=== PATIENT | female | born 1980 | race Caucasian/White ===

== ENCOUNTER 2017-01-16 15:36 | Emergency (ER) | payer OTHER ==
[2017-01-16] MEDS ORDERED: ZOFRAN IM ONE (15:59)
[2017-01-16] MEDS ORDERED: MORPHINE IM ONE (15:59)
--- NOTE | 2017-01-16 17:19 | Diag Imaging Result Document ---
PROCEDURE NAME: HEAD/C-SPINE W/O CONTRAST - 01/16/2017 CT BRAIN AND CERVICAL SPINE WITHOUT CONTRAST. DOSE REDUCTION PROTOCOL: BRAIN: FINDINGS: No parenchymal hemorrhage. No epidural or subdural hematoma. No subarachnoid hemorrhage. No mass identified on this noncontrasted exam. No hydrocephalus. No skull fracture. No sinus opacification. No air fluid levels. IMPRESSION: No hemorrhage. No injury. CT CERVICAL SPINE WITHOUT CONTRAST: FINDINGS: There is slight reversal of the normal curvature. Mild to moderate degenerative changes are found in the lower cervical spine. No subluxation. No precervical soft tissue swelling. No fracture. IMPRESSION: No acute bony injury. A preliminary report was given at 5:02 p.m.
[2017-01-16] MEDS ORDERED: PHENERGAN PO ONE (17:25)
[2017-01-16] MEDS ORDERED: ULTRAM PO ONE (17:25)
--- NOTE | 2017-01-16 17:30 | PROVIDER DOCUMENTATION ---
HPI-Head Injury <Bon Penn Kannan - Last Filed: 01/16/17 17:30> - General Source: patient - History of Present Illness-Head Injury Head Injury Location: reports: global Other injuries associated with incident:: reports: none Quality of Pain: reports: aching Severity: reports: mild Onset/Duration: reports: this morning Timing: reports: still present, intermittent Method of Injury: reports: fell Any recent trauma/injury?: reports: minor Loss of Consciousness: unsure Modifying Factors: improves with: nothing Injury Associated Symptoms: reports: denies symptoms Locality of Occurance: Home Similar Symptoms Previously?: No Recently seen or treated by another doctor?: No <PhillipAnneliese - Last Filed: 01/16/17 17:40> - General Chief Complaint: Head Injury Stated Complaint: HEAD INJURY Time Seen by Provider: 01/16/17 15:47 Allergies/Adverse Reactions: Patient Allergies Allergy/AdvReac Type Severity Reaction Status Date / Time Sulfa (Sulfonamide Allergy Mild RASH Verified 09/04/16 18:20 Antibiotics) doxycycline Allergy SWELLING Verified 09/04/16 18:20 Home Medications: Home Medication List Medication Instructions Recorded Confirmed Last Taken Type Gabapentin [Neurontin] 900 mg PO TID 02/07/15 08/28/16 09/04/16 History Alprazolam [Xanax] 1 mg PO QAM 02/19/16 08/28/16 09/04/16 History Furosemide [Lasix] 20 mg PO BID 02/19/16 08/28/16 09/04/16 History Lamotrigine [Lamictal] 200 mg PO QAM 02/19/16 08/28/16 09/04/16 History Levetiracetam [Keppra] 500 mg PO BID 02/19/16 08/28/16 09/04/16 History Omeprazole 40 mg PO DAILY 02/19/16 08/28/16 09/04/16 History Estradiol 2 mg PO DAILY 05/26/16 08/28/16 09/04/16 History Valacyclovir HCl [Valtrex] 500 mg PO DAILY 05/26/16 08/28/16 08/23/16 07:30 History Sumatriptan Succinate [Imitrex] 100 mg PO DIRECTED 06/20/16 08/28/16 History Hydrocodone/APAP 7.5 mg/325 mg 1 each PO Q6H PRN PRN #14 tablet 09/04/16 Unknown Rx [Kodak-7.5] Duloxetine HCl [Cymbalta] 90 mg PO 01/16/17 Unknown History Ondansetron [Zofran] 4 mg pe PO PRN PRN 01/16/17 01/16/17 Unknown History Prochlorperazine Maleate 5 mg PO Q4H PRN PRN #10 tablet 01/16/17 Unknown Rx [Compazine] Promethazine [Phenergan] 25 mg PO Q6H PRN PRN 01/16/17 01/16/17 Unknown History - History of Present Illness-Head Injury Nature of Presenting Problem: Pt is 36 y/o F presents to the ED with head injury. Pt states had a seizure in the shower this am. Pt states hx of seizures. Pt states unsure of LOC. Pt states laceration to top of head. (Anneliese Fisher) Review of Systems - Adult - REVIEW OF SYSTEMS - ADULT Constitutional: denies: chills, fever Eyes: denies: blurred vision, double vision Ears, Nose, Mouth & Throat: denies: ear pain, nose pain, throat pain Cardiovascular: reports: irregular heart rate (tachy). denies: chest pain, heart murmur Respiratory: denies: cough, shortness of breath, wheezing Gastrointestinal: denies: abdominal pain, diarrhea, nausea, vomiting Genitourinary: denies: dysuria, hematuria Musculoskeletal: denies: bone pain, joint pain, neck pain Integumentary: denies: hives, itching Neurological: reports: seizure. denies: dizziness/vertigo, headache/migraines Psychiatric: reports: no symptoms reported Endocrine: reports: no symptoms reported Hematologic/Lymphatic: reports: no symptoms reported Allergic/Immunologic: reports: no symptoms reported All Other Systems: Reviewed and Negative <Anneliese Fisher - Last Filed: 01/16/17 17:40> Past History - Adult - PAST MEDICAL HISTORY-ADULT Review of Records: reports: Nursing Assessment Review, Medications Reviewed, Social history reviewed & non-contributory. Major Childhood Illnesses: reports: denies history Cardiovascular: reports: CHF, HTN Respiratory: reports: denies history Gastrointestinal: reports: GERD Obstetrical/Gynecological: reports: denies history Genitourinary: reports: denies history Musculoskeletal: reports: arthritis, chronic pain, fibromyalgia, orthopedic injury Neurological: reports: Seizures/Epilepsy Psychiatric: reports: anxiety, depression, ptsd Endocrine/Immune: reports: lupus, other Other Conditions: reports: denies history - PRIOR SURGERIES/PROCEDURES Surgical/Procedure History: reports: hysterectomy, , tonsillectomy, orthopedic (extremity), other, appendectomy - IMMUNIZATION STATUS Childhood Immunizations: See Nurse Assessment Flu Vaccine: See Nurse Assessment - FAMILY HISTORY Family History: reviewed, not pertinent - SOCIAL HISTORY Smoking: denies Substance Use: denies Living Situation: family <Anneliese Fisher - Last Filed: 01/16/17 17:40> Physical Exam- Neurological - Physical Exam-Neuro Initial Vital Signs Reviewed: Yes General Appearance: appears well, alert, no apparent distress Eye Exam: bilateral eye: normal inspection, PERRL, EOMI HENMT: normocephalic/atraumatic, moist mucous membranes, normal ENT inspection, TMs normal, pharynx normal Head Injury: lacerations (2 cm) Neck: non-tender, full range of motion, supple, normal inspection Respiratory: chest non-tender, lungs clear, normal breath sounds, no pleuratic chest pain, no respiratory distress, no accessory muscle use Cardiovascular: normal peripheral pulses, no edema, no gallop, no JVD, no murmur , tachycardia Abdominal Exam: normal bowel sounds, non tender, soft, no organomegaly, no pulsatile mass Lymphatic: no adenopathy Extremity: normal range of motion, non-tender, normal gait, normal inspection, no pedal edema, no calf tenderness manager strategic Exam: normal hearing, normal speech, PERRL Coordination/Gait: normal finger to nose, normal gait Motor/Sensory: no motor deficit, no sensory deficit, no pronator drift Neurologic: manager strategic II-XII nml as tested, grossly normal, no motor/sensory deficits Integumentary: normal color, normal turgor, warm/dry Psych/Mental Status: normal mood/affect, oriented x 3 <Anneliese Fisher - Last Filed: 01/16/17 17:40> Progress <Bon Penn - Last Filed: 01/16/17 17:30> - CT/MRI 1 CT Study: Cervical Spine (no acute bony injury), Head (no hemorrhage. no injury) Impression: Normal <PhillipDorotaAnneliese - Last Filed: 01/16/17 17:40> - PLAN OF CARE/RESULTS Progress/Plan/Lab Results: Orders Category Date Time Status ED: Urine Bedside ORDERED Care 01/16/17 15:59 Active HEAD/C-SPINE W/O CONTRAST [CT] Stat Exams 01/16/17 15:59 Draft Morphine Med 01/16/17 15:59 Discontinued 4 mg IM NOW ONE Ondansetron [Zofran] Med 01/16/17 15:59 Discontinued 4 mg IM NOW ONE Promethazine [Phenergan] Med 01/16/17 17:25 Discontinued 25 mg PO NOW ONE Tramadol [Ultram] Med 01/16/17 17:25 Discontinued 50 mg PO NOW ONE Vital Signs - 24 hr 01/16/17 15:39 Temperature 98.8 F Pulse Rate 110 H Respiratory 20 Rate Blood Pressure 138/91 (Anneliese Fisher) Procedures - LACERATION/WOUND REPAIR/FB Head Wound Length: 2 cm Wound's Depth, Shape: superficial, linear Wound Explored/Foreign Body: clean Irrigated with Saline?: No Wound Repaired with: [place]-Large Number of Sutures: 2 (naomi ) Sterile Dressing Applied?: No Splint Applied?: No Sling Applied?: No Post Procedure Neurovascular Exam: N/A <PhillipAnneliese - Last Filed: 01/16/17 17:40> Departure - Departure Time of Disposition Order: 17:30 Certified Medical Emergency: Emergent <Bon Penn - Last Filed: 01/16/17 17:30> - Departure Time of Disposition Order: 17:40 Certified Medical Emergency: Emergent <Anneliese Fisher - Last Filed: 01/16/17 17:40> - Departure DIAGNOSIS: Seizure Scalp laceration Qualifiers: Encounter type: initial encounter Qualified Code(s): S01.01XA - Laceration without foreign body of scalp, initial encounter Fall Qualifiers: Encounter type: initial encounter Qualified Code(s): W19.XXXA - Unspecified fall, initial encounter Disposition: HOME 01 Condition: Stable Additional Instructions: Take medication as prescribed. Keep area clean and dry. Follow up in 1 week for staple removal. ED Follow Up Instructions: You have been treated by a care provider in the Emergency Department. These instructions are being provided to you so you can have an understanding of how to care for yourself upon discharge. Upon discharge from the Emergency Department, you are responsible for making arrangements for follow-up care by a physician of your choice. Take all prescribed medications as directed. Return to the Emergency Department immediately for any new or worsening symptoms. You may call the Physician Referral phone number at [phone] to obtain a list of Physicians who are taking new patients. Prescriptions: Prochlorperazine Maleate [Compazine] 5 mg PO Q4H PRN PRN #10 tablet PRN Reason: Headaches Referrals: None,PCP [Primary Care Provider] - Attestation - Physician/ BRIAN Attestation Patient care was provided by Advanced Practice Provider:: Yes Advanced Practice Provider:: Bon Penn Advanced Practice Provider documentation review:: The Mid-level provider documentation, treatment plan and medical decision making was reviewed by the physician who agrees with all treatment and medical decision making by the MLP. <Bon Penn - Last Filed: 01/16/17 17:30> - Scribe Verification/Attestation Scribe:: Anneliese Fisher Acting as Scribe for:: Bon Penn Scribe documention review:: This chart was documented by a scribe and accurately reflects the service the provider performed and the decisions made by the provider. <Anneliese Fisher - Last Filed: 01/16/17 17:40> Physician Attestation
[2017-01-16 17:47] VITALS: BP 113/71
== END 2017-01-16 17:51 | disposition home or self-care (01) ==
LOC: P.ED 15:36
DX: S01.01XA Laceration without foreign body of scalp, initial encounter (principal); R56.9 Unspecified convulsions; R00.0 Tachycardia, unspecified; I50.9 Heart failure, unspecified; I10 Essential (primary) hypertension; K21.9 Gastro-esophageal reflux disease without esophagitis; M19.90 Unspecified osteoarthritis, unspecified site; M79.7 Fibromyalgia; Z79.899 Other long term (current) drug therapy; G89.29 Other chronic pain; M32.9 Systemic lupus erythematosus, unspecified; F41.9 Anxiety disorder, unspecified; F32.9 Major depressive disorder, single episode, unspecified; F43.10 Post-traumatic stress disorder, unspecified; W19.XXXA Unspecified fall, initial encounter
CPT/HCPCS: 70450; 72125; 81025; 96372; J2270; J2405

== ENCOUNTER 2017-01-30 16:53 | Observation (INO) | payer OTHER ==
[2017-01-30] MEDS ORDERED: AMMONIA AROMATIC ONE (16:59)
[2017-01-30 18:46] LABS: MANUAL DIFF NEEDED? NO
[2017-01-30 18:53] LABS: BASO% 1.1 % (0.0-0.8); EOS# 0.23 X1000 (0.0-0.7); EOS% 2.3 % (0.0-10.0); HEMATOCRIT 39.5 % (37.0-47.0); HEMOGLOBIN 13.8 g/dL (12.0-16.0); LYMPH# 3.64 X1000 (1.2-3.4); LYMPH% 36.8 % (20.5-51.1); MCH 30.2 PG (27-31); MCHC 34.9 g/dL (33-37); MCV 86.4 FL (81-99); MONO% 9.1 % (1.7-9.3); MPV 11.3 FL (7.4-10.4); NEUT% 50.7 % (42.2-75.2); PLT 290 X1000 (130-400); RBC 4.57 XMIL (4.2-5.4)
[2017-01-30 19:06] LABS: INR 0.92; PROTIME 9.4 Seconds (9.2-11.7); PTT 22.2 Seconds (22.0-36.0)
[2017-01-30 19:10] LABS: AGAP 14; ALKALINE PHOSPHATASE 76 U/L (32-104); BUN 10 mg/dL (8-22); CHLORIDE 102 mmol/L (98-107); CK PROFILE 59 U/L (24-173); COSMO 278; GOT 26 U/L (10-30); GPT 43 U/L (10-36); MAGNESIUM 2.2 mg/dL (1.5-2.7); POTASSIUM 3.8 mmol/L (3.5-5.1); SODIUM 140 mmol/L (136-145); TCO2 24 mmol/L (25-35); TOTAL BILIRUBIN 0.21 mg/dL (0.20-1.00); TOTAL PROTEIN 7.1 g/dL (6.3-8.3)
[2017-01-30] MEDS ORDERED: SODIUM CHLORIDE 0.9% INJ ONE (19:25)
[2017-01-30] MEDS ORDERED: PHENERGAN IV ONE (19:25)
[2017-01-30] MEDS ORDERED: DILAUDID IV ONE ×2 (19:25→21:37)
[2017-01-30 19:26] LABS: ACETAMINOPHEN < 1.2 ug/mL (10-30)
--- NOTE | 2017-01-30 19:29 | PROVIDER DOCUMENTATION ---
HPI-Neurological Disorder - General Chief Complaint: Seizure Stated Complaint: SEIZURE Time Seen by Provider: 01/30/17 18:29 Source: patient Allergies/Adverse Reactions: Patient Allergies Allergy/AdvReac Type Severity Reaction Status Date / Time Sulfa (Sulfonamide Allergy Mild RASH Verified 01/30/17 18:10 Antibiotics) doxycycline Allergy SWELLING Verified 01/30/17 18:10 Home Medications: Home Medication List Medication Instructions Recorded Confirmed Last Taken Type Gabapentin [Neurontin] 1,200 mg PO TID 02/07/15 01/30/17 01/30/17 08:00 History Furosemide [Lasix] 40 mg PO DAILY 02/19/16 01/30/17 01/30/17 08:00 History Lamotrigine [Lamictal] 200 mg PO BID 02/19/16 01/30/17 01/30/17 08:00 History Levetiracetam [Keppra] 1,000 mg PO BID 02/19/16 01/30/17 01/30/17 08:00 History Omeprazole 40 mg PO DAILY 02/19/16 01/30/17 01/30/17 08:00 History Estradiol 2 mg PO DAILY 05/26/16 01/30/17 01/30/17 08:00 History Valacyclovir HCl [Valtrex] 500 mg PO DAILY 05/26/16 01/30/17 01/30/17 08:00 History Sumatriptan Succinate [Imitrex] 100 mg PO DIRECTED 06/20/16 01/30/17 1 Week Ago History Duloxetine HCl [Cymbalta] 90 mg PO DAILY 01/16/17 01/30/17 01/30/17 08:00 History Ondansetron [Zofran] 4 mg pe PO PRN PRN 01/16/17 01/30/17 2 Months Ago History Promethazine [Phenergan] 25 mg PO Q6H PRN PRN 01/16/17 01/30/17 1 Week Ago History Prazosin [Minipress] 2 mg PO QHS 01/30/17 01/30/17 01/29/17 23:00 History - History of Present Illness-Neuro Nature of Presenting Problem: Pt is a 37 yof who presents to ER with CC of 4 seizures today that occured within 10 minutes. Pt reports that she was in a car, passenger, when she started to have a seizure. Family at bedside, who was the driver sales, reports that pt was having muscle spasms and hitting her head on the passenger side window. Pt now complains of a headache, nausea, blurry vision, dizziness, R sided facial pain, R lateral neck pain, and R shoulder pain. Pt has hx of seizures and takes kepra and lamictal. Pt also reports that she has been under increased stress this week because of her great aunt being admitted to the hospital. Headache Location: reports: frontal (R), temporal (R), parietal (RR) Severity: reports: moderate Onset/Duration: reports: just prior to arrival Timing: reports: improving Context: reports: seizure activity Character of Altered Mental Status: reports: confused, seizure activity. denies : unresponsive Any recent trauma/injury?: reports: other (recent emotional stress) Cognitive Baseline: alert, oriented x3 Gait Baseline: walks without assistance Associated Symptoms: reports: headache, dizziness, neck/back pain (R neck/ cervical), loss of consciousness, muscle spasms, nausea, seizures, vision changes (blurry vision). denies: short of breath, decreased ability to walk or stand, fainting, confusion, chest pain, fatigue, fever/chills, insomnia, numbness in legs/feet, paresthesia, diaphoretic, ringing in ears, sleepy, slurred speech, tingling in legs/feet, trouble walking, vomiting, weakness Similar Symptoms Previously?: Yes Recently seen or treated by another doctor?: Yes - Seizure First time to have a seizure?: No Witnessed seizure?: Yes How many seizure episodes?: 4 Duration of episode? (mins): 10 Episode Frequency: occasional episodes Status Epilepticus: Yes Character of Seizure: reports: lost consciousness, generalized shaking all over Post-ictal Symptoms: reports: headache Review of Systems - Adult - REVIEW OF SYSTEMS - ADULT Constitutional: denies: chills, fever, fatique, night sweats, weight gain, weight loss Eyes: reports: blurred vision. denies: discharge, dry eyes, decreased vision, double vision, eye pain, redness Ears, Nose, Mouth & Throat: reports: no symptoms reported Cardiovascular: reports: no symptoms reported Respiratory: denies: chronic cough, cough, dyspnea on exertion, excessive sputum production, hemoptysis, pleurisy, shortness of breath, wheezing Gastrointestinal: reports: no symptoms reported Genitourinary: reports: no symptoms reported Musculoskeletal: reports: back pain, joint swelling, muscle aches, muscle weakness, neck pain. denies: bone pain, frequent leg cramps, joint pain Integumentary: reports: no symptoms reported Neurological: reports: dizziness/vertigo, headache/migraines, seizure. denies: ataxia, loss of balance, numbness, paresthesia, slurred speech, syncope, tremors Psychiatric: reports: no symptoms reported Endocrine: reports: no symptoms reported Hematologic/Lymphatic: reports: no symptoms reported Allergic/Immunologic: reports: no symptoms reported All Other Systems: Reviewed and Negative Past History - Adult - PAST MEDICAL HISTORY-ADULT Review of Records: reports: Nursing Assessment Review, Medications Reviewed Cardiovascular: reports: CHF, HTN Gastrointestinal: reports: GERD Musculoskeletal: reports: arthritis, chronic pain, fibromyalgia, orthopedic injury Neurological: reports: Seizures/Epilepsy Psychiatric: reports: anxiety, depression, ptsd Endocrine/Immune: reports: lupus, other - PRIOR SURGERIES/PROCEDURES Surgical/Procedure History: reports: hysterectomy, , tonsillectomy, orthopedic (extremity), other, appendectomy - IMMUNIZATION STATUS Childhood Immunizations: See Nurse Assessment Flu Vaccine: See Nurse Assessment Physical Exam- Neurological - Physical Exam-Neuro Initial Vital Signs Reviewed: Yes General Appearance: appears well, alert, mild distress, lethargic. negative: no apparent distress, moderate distress, severe distress, cachetic, obese, thin , anxious, slow to respond, obtunded, combative Eye Exam: bilateral eye: normal inspection, PERRL, EOMI HENMT: normocephalic/atraumatic, moist mucous membranes, normal ENT inspection, TMs normal, pharynx normal Head Injury: no evidence of injury, tenderness (R frontal; R parietal; R temporal) Neck: full range of motion, supple, C-spine tenderness. negative: non-tender, limited range of motion, lymphadenopathy Respiratory: chest non-tender, lungs clear, normal breath sounds, no pleuratic chest pain, no respiratory distress, no accessory muscle use. negative: wheezing Cardiovascular: normal peripheral pulses, regular rate, rhythm. negative: bradycardia, tachycardia, irregularly irregular program evaluation consultant Exam: normal hearing, normal speech, PERRL. negative: hearing deficit (R), hearing deficit (L), tongue deviation to R, tongue deviation to L Coordination/Gait: normal finger to nose, normal gait, negative Romberg's sign Motor/Sensory: no motor deficit, no sensory deficit, no pronator drift. negative: weak motor strength RUE, weak motor strength LUE, weak motor strength RLE, weak motor strength LLE Neurologic: grossly normal, no motor/sensory deficits. negative: facial droop, focal weakness, motor weakness, sensory deficit Integumentary: normal color, normal turgor, warm/dry Psych/Mental Status: normal mood/affect, normal thought content, normal thought process, oriented x 3 Progress - PLAN OF CARE/RESULTS Progress/Plan/Lab Results: POC: CT/labs Vital Signs - 24 hr 01/30/17 01/30/17 17:00 18:18 Temperature 98 F Pulse Rate 82 74 Respiratory 24 26 H Rate Blood Pressure 156/95 143/82 O2 Sat by Pulse 98 98 Oximetry Orders Category Date Time Status Cardiac Monitoring DIRECTED Care 01/30/17 18:33 Active Saline Loc NOW Care 01/30/17 18:33 Active Urine Preg [ED: Urine Bedside] ORDERED Care 01/30/17 18:36 Active CHEST-2 VIEWS [RAD] Stat Exams 01/30/17 18:33 Taken HEAD W/O CONTRAST [CT] Stat Exams 01/30/17 18:34 Taken ACETAMINOPHEN [TDM] Stat Lab 01/30/17 17:00 Completed ALCOHOL BLOOD Stat Lab 01/30/17 17:00 Completed CBC WITH ELECTRONIC DIFF [HEME] Stat Lab 01/30/17 17:00 Completed CK PROFILE [SP CHEM] Stat Lab 01/30/17 17:00 Completed COMPREHENSIVE METABOLIC PANEL [CHEM] Stat Lab 01/30/17 17:00 Completed MAGNESIUM [CHEM] Stat Lab 01/30/17 17:00 Completed PRO B-NATRIURETIC PEPTIDE Stat Lab 01/30/17 17:00 Completed PROTIME WITH INR [COAG] Stat Lab 01/30/17 17:00 Completed PTT [COAG] Stat Lab 01/30/17 17:00 Completed SALICYLATES [TDM] Stat Lab 01/30/17 17:00 Completed TROPONIN T Stat Lab 01/30/17 17:00 Completed URINALYSIS W/POSS RFLX CULT [URINALYSIS] Stat Lab 01/30/17 19:18 Completed URINE DRUG SCREEN Stat Lab 01/30/17 19:18 Completed Ammonia, Aromatic [Ammonia Aromatic] Med 01/30/17 16:59 Discontinued 1 each .ROUTE .STK-MED ONE Hydromorphone [Dilaudid] Med 01/30/17 19:25 Discontinued 1 mg IV NOW ONE Promethazine [Phenergan] Med 01/30/17 19:25 Discontinued 12.5 mg IV NOW ONE Sodium Chloride 0.9% Med 01/30/17 19:25 Discontinued 10 ml INJ NOW ONE EKG [EKG] Stat Ther 01/30/17 18:33 Ordered Laboratory Tests 01/30/17 01/30/17 01/30/17 17:00 17:00 17:00 WBC 9.90 RBC 4.57 Hgb 13.8 Hct 39.5 MCV 86.4 MCH 30.2 MCHC 34.9 RDW Std Deviation 14.3 Plt Count 290 MPV 11.3 H Immature Gran % (Auto) 0.0 Neut % (Auto) 50.7 Lymph % (Auto) 36.8 [place] % (Auto) 9.1 Eos % (Auto) 2.3 Baso % (Auto) 1.1 H Immature Gran # (Auto) 0.00 Neut # (Auto) 5.02 Lymph # (Auto) 3.64 H [place] # (Auto) 0.90 H Eos # (Auto) 0.23 Baso # (Auto) 0.11 PT INR PTT (Actin FS) Sodium 140 Potassium 3.8 Chloride 102 Carbon Dioxide 24 L Anion Gap 14 BUN 10 Creatinine 0.9 Estimated GFR/1.73 m2 > 60 BUN/Creatinine Ratio 11 Glucose 93 Calculated Osmolality 278 Calcium 9.0 Magnesium 2.2 Total Bilirubin 0.21 AST 26 ALT 43 H Alkaline Phosphatase 76 Creatine Kinase 59 Troponin T [id number] Pept 12 Total Protein 7.1 Albumin 4.0 Globulin 3.1 Albumin/Globulin Ratio 1.3 Urine Source Urine Color Urine Turbidity Urine pH Ur Specific [place] Urine Protein Ur Glucose (Stick) Ur Ketones (Stick) Urine Blood Urine Nitrite Urine Bilirubin Urobilinogen Dipstick Urine Leukocytes Urine WBC (Auto) Urine RBC (Auto) U Epithel Cells (Auto) Urine Bacteria (Auto) Salicylates < 3.00 L Urine Opiates Screen Ur Oxycodone Screen Ur Methadone, Qual Acetaminophen < 1.2 L Ur Barbiturates Screen Ur Phencyclidine Scrn Ur Amphetamines Screen U Benzodiazepines Scrn Urine Cocaine Screen U Cannabinoids Screen Plasma/Serum Ethyl Alc 01/30/17 01/30/17 01/30/17 17:00 17:00 17:00 WBC RBC Hgb Hct MCV MCH MCHC RDW Std Deviation Plt Count MPV Immature Gran % (Auto) Neut % (Auto) Lymph % (Auto) [place] % (Auto) Eos % (Auto) Baso % (Auto) Immature Gran # (Auto) Neut # (Auto) Lymph # (Auto) [place] # (Auto) Eos # (Auto) Baso # (Auto) PT 9.4 INR 0.92 PTT (Actin FS) 22.2 Sodium Potassium Chloride Carbon Dioxide Anion Gap BUN Creatinine Estimated GFR/1.73 m2 BUN/Creatinine Ratio Glucose Calculated Osmolality Calcium Magnesium Total Bilirubin AST ALT Alkaline Phosphatase Creatine Kinase Troponin T < 0.010 Dlr-H-Riledtyswes Pept Total Protein Albumin Globulin Albumin/Globulin Ratio Urine Source Urine Color Urine Turbidity Urine pH Ur Specific [place] Urine Protein Ur Glucose (Stick) Ur Ketones (Stick) Urine Blood Urine Nitrite Urine Bilirubin Urobilinogen Dipstick Urine Leukocytes Urine WBC (Auto) Urine RBC (Auto) U Epithel Cells (Auto) Urine Bacteria (Auto) Salicylates Urine Opiates Screen Ur Oxycodone Screen Ur Methadone, Qual Acetaminophen Ur Barbiturates Screen Ur Phencyclidine Scrn Ur Amphetamines Screen U Benzodiazepines Scrn Urine Cocaine Screen U Cannabinoids Screen Plasma/Serum Ethyl Alc 01/30/17 01/30/17 19:18 19:18 WBC RBC Hgb Hct MCV MCH MCHC RDW Std Deviation Plt Count MPV Immature Gran % (Auto) Neut % (Auto) Lymph % (Auto) [place] % (Auto) Eos % (Auto) Baso % (Auto) Immature Gran # (Auto) Neut # (Auto) Lymph # (Auto) [place] # (Auto) Eos # (Auto) Baso # (Auto) PT INR PTT (Actin FS) Sodium Potassium Chloride Carbon Dioxide Anion Gap BUN Creatinine Estimated GFR/1.73 m2 BUN/Creatinine Ratio Glucose Calculated Osmolality Calcium Magnesium Total Bilirubin AST ALT Alkaline Phosphatase Creatine Kinase Troponin T Hbs-W-Eybrvtmyray Pept Total Protein Albumin Globulin Albumin/Globulin Ratio Urine Source CLEAN CATCH Urine Color STRAW Urine Turbidity CLEAR Urine pH 6.0 Ur Specific [place] 1.004 Urine Protein NEGATIVE Ur Glucose (Stick) NEGATIVE Ur Ketones (Stick) NEGATIVE Urine Blood NEGATIVE Urine Nitrite NEGATIVE Urine Bilirubin NEGATIVE Urobilinogen Dipstick NORMAL Urine Leukocytes NEGATIVE Urine WBC (Auto) <10 Urine RBC (Auto) <10 U Epithel Cells (Auto) <10 Urine Bacteria (Auto) 1+ Salicylates Urine Opiates Screen NONE DETECTED Ur Oxycodone Screen NONE DETECTED Ur Methadone, Qual NONE DETECTED Acetaminophen Ur Barbiturates Screen NONE DETECTED Ur Phencyclidine Scrn NONE DETECTED Ur Amphetamines Screen NONE DETECTED U Benzodiazepines Scrn NONE DETECTED Urine Cocaine Screen NONE DETECTED U Cannabinoids Screen NONE DETECTED Plasma/Serum Ethyl Alc - REASSESSMENT Reassessment #1 Time Reassessed: 20:47 Status: other (Discussed results of pt's labs and plan to admit pt. Pt and family verbally agreed.) - XRAY 1 XRAY: Bilateral XRAY Study: Chest Impression: See EMR Report XRAY Interpretation: Negative - CT/MRI 1 CT Study: Head Impression: See EMR Report CT Results: NAP - CONSULTS/PCP/HOSPITALIST Notification #1 *Consult/PCP/Hospitalist*: Dr. Schuster (Hospitalist) Time Discussed: 20:38 Consult Disposition: Admit Departure - Departure Time of Disposition Order: 20:38 DIAGNOSIS: Seizure Disposition: ADMITTED INPATIENT 09 Certified Medical Emergency: Emergent Condition: Stable Referrals: None,PCP [Primary Care Provider] - Attestation - Scribe Verification/Attestation Scribe:: Francisco Summers Acting as Scribe for:: Claude Venegas Scribe documention review:: This chart was documented by a scribe and accurately reflects the service the provider performed and the decisions made by the provider.
[2017-01-30 20:11] LABS: URINE CULTURE NEEDED? NO; URINE MICRO REVIEW NEEDED? NO; URINE SOURCE CLEAN CATCH
[2017-01-30 20:19] LABS: BILIRUBIN URINE NEGATIVE (NEGATIVE); BLOOD URINE NEGATIVE (NEGATIVE); COLOR STRAW; GLUCOSE URINE NEGATIVE (NEGATIVE); LEUKOCYTES URINE NEGATIVE (NEGATIVE); NITRITE URINE NEGATIVE (NEGATIVE); PROTEIN URINE NEGATIVE (NEGATIVE); SP GRAVITY URINE 1.004; TURBIDITY URINE CLEAR (CLEAR); UR EPITHELIAL CELLS <10 /HPF (<10); URINE BACTERIA 1+ /HPF; URINE RBC <10 /HPF (<10); URINE WBC <10 /HPF (<10); UROBILINOGEN URINE NORMAL (NORMAL)
[2017-01-30 20:28] LABS: UR AMPHETAMINES QUAL NONE DETECTED (NONE DETECT); UR BARBITUATES QUAL NONE DETECTED (NONE DETECT); UR BENZODIAZEPIN QUAL NONE DETECTED (NONE DETECT); UR CANNABINOIDS QUAL NONE DETECTED (NONE DETECT); UR COCAINE QUAL NONE DETECTED (NONE DETECT); UR METHADONE QUAL NONE DETECTED (NONE DETECT); UR OPIATES QUAL NONE DETECTED (NONE DETECT); UR OXYCODONE QUAL NONE DETECTED (NONE DETECT); UR PCP QUAL NONE DETECTED (NONE DETECT)
[2017-01-31] MEDS ORDERED: ZOFRAN PO PRN (00:16)
[2017-01-31] MEDS: NS 1,000 ML IV SCH ×3 (00:31→21:05)
--- NOTE | 2017-01-31 04:20 | HISTORY AND PHYSICAL ---
CHIEF COMPLAINT: Seizures. HISTORY OF PRESENTING ILLNESS: A 37-year-old female with a history of seizures and migraines who presented to the emergency department after she had several episodes of witnessed seizure by her spouse. As per spouse, she was shaking and it seemed to be continuous about 4 episodes. She had presented to the emergency department. She was somewhat disoriented and due to her symptoms, it was thought that she would need hospitalization for further management. At the time of my examination, she had denied any nausea, vomiting, diarrhea, chest pain, shortness of breath, hemoptysis, melena, or weight changes but complained of having a headache. PAST MEDICAL HISTORY: Seizures, migraines, rheumatoid arthritis, fibromyalgia, PTSD. PAST SURGICAL HISTORY: Tonsillectomy, appendectomy, hysterectomy, right breast lumpectomy. ALLERGIES: Sulfa and doxycycline. CURRENT MEDICATIONS: Listed in the MAR. SOCIAL HISTORY: She denies any history of smoking, alcohol, or illicit drug use. FAMILY HISTORY: Positive for coronary artery disease in father. REVIEW OF SYSTEMS: Twelve point review of systems listed as in the HPI. Other systems negative. PHYSICAL EXAMINATION: GENERAL: Cooperative, friendly female. She is resting more comfortably now. VITAL SIGNS: Temperature 98 degrees, pulse 82, respirations 24, blood pressure 156/95, she is saturating 98%. HEENT: Atraumatic, normocephalic. Extraocular movements intact. PERRLA. NECK: Supple. CHEST: Clear to auscultation. CARDIOVASCULAR: Regular rate and rhythm. ABDOMEN: Soft. Positive bowel sounds. EXTREMITIES: No edema. NEUROLOGIC: She is awake, alert, oriented x3. : No bladder distention. SKIN: Warm. LABORATORIES AND STUDIES: WBCs 9.9, hemoglobin 13.8, hematocrit 39.5, platelets 290,000. Sodium 140, potassium 3.8, chloride 102, CO2 is 24, BUN is 10, creatinine 0.9, glucose is 93. ASSESSMENT: A 37-year-old female with a history of migraines and seizures. Apparently had several episodes of seizures at home. She was brought to the emergency department and due to presenting symptoms, it was thought that she would need hospitalization for further management. 1. Seizures. 2. Migraine headache. 3. Fibromyalgia. PLAN: 1. We will admit patient to the medical floor. 2. We will put the patient on seizure precautions. 3. We will restart her home antiepileptic agents. 4. We will consult neurology. 5. We will give patient adequate treatment for her headache. 6. We will put patient on DVT prophylaxis with SCDs. 7. We will continue to follow and reassess.
--- NOTE | 2017-01-31 05:31 | EKG Report ---
Test Performed on : 01/30/2017 5:04:09 PM Test Reason : Chest Pain Blood Pressure : / mmHG Vent. Rate : 075 BPM Atrial Rate : 075 BPM P-R Int : 164 ms QRS Dur : 086 ms QT Int : 358 ms P-R-T Axes : 061 047 036 degrees QTc Int : 399 ms Normal sinus rhythm. Normal ECG When compared with ECG of 08-OCT-2016 14:22, No significant change was found Unconfirmed Result
[2017-01-31] MEDS: ATIVAN IV PRN (06:42)
[2017-01-31] MEDS: PRILOSEC PO SCH (06:43)
--- NOTE | 2017-01-31 07:05 | Diag Imaging Result Document ---
PROCEDURE NAME: CHEST-2 VIEWS - 01/30/2017 FRONTAL AND LATERAL CHEST, TWO VIEWS: COMPARISON: Compared to 08/03/2016. FINDINGS: The lungs are well expanded. The heart is not enlarged. The vessels are not distended. No pneumonia. No pleural effusions. No free air beneath the diaphragm. IMPRESSION: No acute abnormality.
[2017-01-31 07:15] LABS: MANUAL DIFF NEEDED? NO
[2017-01-31 07:21] LABS: BASO% 1.4 % (0.0-0.8); EOS# 0.32 X1000 (0.0-0.7); EOS% 4.6 % (0.0-10.0); HEMATOCRIT 37.9 % (37.0-47.0); HEMOGLOBIN 13.1 g/dL (12.0-16.0); LYMPH# 3.12 X1000 (1.2-3.4); LYMPH% 44.5 % (20.5-51.1); MCH 30.3 PG (27-31); MCHC 34.6 g/dL (33-37); MCV 87.5 FL (81-99); MONO# 0.67 X1000 (0.11-0.59); MONO% 9.6 % (1.7-9.3); NEUT% 39.9 % (42.2-75.2); PLT 277 X1000 (130-400); RBC 4.33 XMIL (4.2-5.4)
--- NOTE | 2017-01-31 07:38 | Diag Imaging Result Document ---
PROCEDURE NAME: HEAD W/O CONTRAST - 01/30/2017 CT BRAIN WITHOUT CONTRAST: COMPARISON: Compared to 01/16/2017. FINDINGS: No parenchymal hemorrhage. No epidural or subdural hematoma. No subarachnoid hemorrhage. No mass identified on this noncontrasted exam. No hydrocephalus. No sinus opacification. No air fluid levels. IMPRESSION: No hemorrhage. Negative brain CT without contrast A preliminary report was given at 7:14 p.m.
[2017-01-31 07:42] LABS: AGAP 12; BUN 8 mg/dL (8-22); CHLORIDE 105 mmol/L (98-107); COSMO 280; POTASSIUM 3.6 mmol/L (3.5-5.1); SODIUM 141 mmol/L (136-145); TCO2 24 mmol/L (25-35)
[2017-01-31] MEDS: KEPPRA PO SCH ×2 (08:48→21:06)
[2017-01-31] MEDS: VALTREX PO SCH (08:48)
[2017-01-31] MEDS: CYMBALTA PO SCH (08:48)
[2017-01-31] MEDS: LASIX PO SCH (08:49)
[2017-01-31] MEDS: ESTRACE PO SCH (08:51)
[2017-01-31] MEDS ORDERED: LAMICTAL PO SCH (09:00)
[2017-01-31] MEDS ORDERED: NEURONTIN PO SCH (09:00)
[2017-01-31] MEDS: NEURONTIN PO SCH ×2 (15:00→21:06)
[2017-01-31] MEDS: LAMICTAL PO SCH ×2 (18:09→21:06)
[2017-01-31] MEDS ORDERED: SODIUM CHLORIDE 0.9% INJ PRN (18:15)
[2017-01-31] MEDS ORDERED: PHENERGAN IV PRN (18:15)
--- NOTE | 2017-01-31 20:28 | CONSULTATION ---
DATE OF CONSULTATION: 01/31/2017 HISTORY OF PRESENT ILLNESS: Ms. Rowell is 37 years old and she had possible recent seizures. History from the patient and attentive boom truck driver at the bedside and from review of the hospital record here is that she began having seizures several years ago in her mid 30s. She is generally aware of a seizure because she feels odd, "not myself". She has not noticed definite focal features to that sensation. Sometimes, she is aware that time has passed, but she cannot box inspector that precisely. She often finds herself "waking up", sometimes on the floor, often "sore all over", and sometimes with a sense of numbness, maybe more on the right than the left. She has had some tongue biting to the point of bleeding. She has had urinary incontinence with these episodes. She has not had serious injury associated with these episodes. Tunnel Elastic Operator Zigzag at the bedside reports witnessing many of these. He reports that she will sometimes become blank with a fixed stare and she is unresponsive. Sometimes, she has some shaking in one arm or the other arm, not always the same one, and sometimes she has shaking all over. Sometimes, I believe that she responds verbally while she is shaking bilaterally. She seems exhausted afterward. She was started on medicine for seizure control some time ago. She was taking lamotrigine and then levetiracetam was added. Levetiracetam dose has been increased in recent months. She had some spells about 6 weeks ago and lamotrigine dose was increased to 1000 mg b.i.d. then. She had some spells on the day of admission yesterday, 4 episodes in total, all witnessed and reported to be similar to previous spells. She is certain she had not missed any medicine doses. CURRENT MEDICINES: Lamotrigine 200 mg b.i.d., levetiracetam 1000 mg b.i.d., gabapentin 1200 mg t.i.d. Ariel Shields MD is her treating neurologist in [place]. She has an appointment with him in 10 days. Computer record shows previous workup, February 2016 Sleep Study unremarkable showing snoring, but no apnea. Noncontrast CT of the head this admission is unremarkable. Lab work this admission shows nothing that would account for seizure or encephalopathy. Urine drug screen was all negative this admission. PHYSICAL EXAMINATION: On exam, she is awake, alert, attentive, oriented, appropriate. Speech is not dysarthric. Language function is intact. Memory is good. Head and neck are unremarkable. Visual hollingsworth are full, tested grossly by confrontational finger counting. Extraocular movements are full. Facial motility is symmetric. Gag is intact. Tongue is midline. She can hear. Shoulder shrug is equal. Strength is normal in the arms and legs. Tone is equal in the limbs. She did well on [id number] testing bilaterally. I did not test her gait. Sensation is grossly symmetric over the limbs. IMPRESSION: History of episodes raising question of seizure. There may be some partial seizures and some secondary generalized seizures. There is also the possibility that some of her episodes are not seizures. We discussed that frankly and at some length. We discussed options including increasing the dose of one of her AEDs. Since episodes are not controlled, since features are consistent with seizure (although that diagnosis is not proved here now) and since she reports no adverse effects with current doses, I think we should increase AED dose. After discussing options, she prefers to increase lamotrigine dose. She will try lamotrigine 300 mg b.i.d. until she can see Dr. Shields next week. We discussed potential for lamotrigine adverse effects and she will let Dr. Shields know if any of that is prominent. We discussed increasing levetiracetam, but since that dose has been increased in recent months without apparent control of episodes, we will focus on lamotrigine now. We discussed the [place] law as it pertains to driving and she understands her responsibility. Further, I suggested that she avoid any situation in which one of these episodes might result in serious injury to her or to someone else. Thanks for asking me to see Ms. Rowell. [facility]
--- NOTE | 2017-01-31 20:46 | PROGRESS NOTE ---
DATE: 01/31/2017 SUBJECTIVE: This morning Ms. Rowell referred to be doing fine. According to her , she feels like she was having seizures earlier today. The patient has been evaluated by Neurology early this morning. According to Ms. Rowell, she will occasionally also get a migraine. She is still very nauseated and she specifically requested Phenergan and some pain medication. OBJECTIVE: Vital signs: Blood pressure is 128/73, pulse 84, respirations 18, temperature 97.7 degrees. General examination: Ms. Rowell is a 37-year-old, female, morbidly obese, with a BMI of 39.7. She was in bed, in no distress. HEENT: Mucosa is pink and moist. Anicteric. Acyanotic. Neck: Supple. Chest: Clear. Cardiovascular: Regular rate and rhythm. There were no murmurs, no rubs, no gallops. Abdomen: Soft, nontender. Extremities: No pedal edema. Central Nervous System: Patient was alert and oriented x4. There was no focal neurological deficit. LABORATORY DATA: A CBC has been reviewed and is completely unremarkable. Chemistry is reviewed and is completely unremarkable. I reviewed the patient's chest x-ray which was unremarkable for any acute disease. A CT scan of the of the head with no contrast was done yesterday and shows no hemorrhage. CURRENT MEDICATIONS: 1. Cymbalta. 2. Estradiol 3. Lasix 40 p.o. daily. 4. Gabapentin 200 3 times per day. 5. Lamictal 300 b.i.d. 6. Keppra 1000 b.i.d. 7. Ativan p.r.n. 8. Minipress 2 mg daily. ASSESSMENT: 1. Breakthrough seizures. According to the patient she normally struggles with seizures and follows up with Dr. Shields, a neurologist in [place]. She has not had any changes to her medications. According to her, she has been under lot of stress lately and she thinks that probably triggered her breakthrough seizures. Either way the patient has been seen by Neurology and there have been some changes with up titration of her Keppra dose. 2. Migraine headaches. 3. Fibromyalgia. 4. Morbid obesity. 5. History of rheumatoid arthritis. 6. Prescription drug abuse (narcotics and Phenergan). GENERAL PLAN: We will continue with the recommendations from Dr. Sawyer, the neurologist. We will observe the patient for another 24 hours. If she is seizure free, we will discharge her tomorrow morning for her to follow up with her the neurologist in [place]. We will add Phenergan to her nausea sensation if that will help. MTDD
[2017-01-31] MEDS ORDERED: MINIPRESS PO SCH (21:00)
[2017-02-01] MEDS: NS 1,000 ML IV SCH (06:23)
[2017-02-01] MEDS: PRILOSEC PO SCH (06:24)
[2017-02-01] MEDS: ATIVAN IV PRN (06:58)
[2017-02-01 08:07] VITALS: BP 143/80
[2017-02-01] MEDS: CYMBALTA PO SCH (08:42)
[2017-02-01] MEDS: LAMICTAL PO SCH (08:42)
[2017-02-01] MEDS: ESTRACE PO SCH (08:42)
[2017-02-01] MEDS: LASIX PO SCH (08:43)
[2017-02-01] MEDS: VALTREX PO SCH (08:43)
[2017-02-01] MEDS: NEURONTIN PO SCH (08:43)
[2017-02-01] MEDS: KEPPRA PO SCH (08:44)
--- NOTE | 2017-02-01 16:18 | DISCHARGE SUMMARY ---
ADMISSION DATE: 01/30/2017 DISCHARGE DATE: 02/01/2017 CONSULTATIONS: Dr. Maribell Sawyer, III with Neurology. PERTINENT PROCEDURES: Head CT showed no hemorrhage. Negative brain CT without contrast. DISCHARGE DIAGNOSES: 1. Breakthrough seizures. The patient normally follows up with Dr. Shields in [place]. There have been no changes to her medication recently. However, she states that she has been under a lot of stress triggering her breakthrough seizures. Dr. Sawyer titrated up on her Keppra dose. 2. Migraine headaches. Continue with home medications. 3. Fibromyalgia. Aware. 4. Morbid obesity. Patient counseled on diet and exercise. 5. Rheumatoid arthritis history. Continue with home medications. 6. Prescription drug abuse with narcotics and Phenergan. HOSPITAL COURSE: Briefly, Ms. Rowell is a 37-year-old female who has a past medical history of seizures, migraines, fibromyalgia, and PTSD who reported to the Emergency Room after several episodes of a witnessed seizure by her spouse. Per her spouse she was shaking and it seemed to be continuous; about 4 episodes. The patient remained disoriented while in the ED so she was admitted for further evaluation and observation with a neurology consult and placed on seizure precautions. They restarted her home antiepileptic agent. Dr. Sawyer felt like they were some partial seizures and some secondary generalized seizures. They did increase her medication until she could see Dr. Shields next week and they also discussed the [place] law that pertains to driving and that she understands her responsibility and to avoid any situation in which one of these episodes might result in a serious injury to her or someone else. The patient was monitored again for 24 hours. She remained seizure free. The patient is being discharged home today. She will follow up with Dr. Shields in [place] as well as her primary care physician. VITAL SIGNS AT THE TIME OF DISCHARGE: Temperature is 98.5, heart rate 80, respirations 20, and blood pressure 143/80. O2 is 94% on room air. DISCHARGE DIET: Regular. DISCHARGE MEDICATIONS: 1. Gabapentin 1200 mg p.o. t.i.d.. 2. Lasix 40 mg p.o. daily. 3. Keppra 1,000 mg p.o. b.i.d.. 4. Prilosec 40 mg p.o. daily. 5. Phenergan 25 mg p.o. every 6 hours p.r.n.. 6. Zofran 4 mg p.o. p.r.n.. 7. Cymbalta 90 mg p.o. daily. 8. Minipress 2 mg p.o. at bedtime. 9. Estradiol 2 mg p.o. daily. 10.Valtrex 500 mg p.o. daily. 11.Imitrex 100 mg p.o. as directed. 12.Lamictal 30 mg p.o. b.i.d.. FOLLOW UP: The patient will be discharged home. She will need to follow up with a primary care physician from the list that is being provided to her. She will also need to follow up with her primary neurologist, Dr. Shields. She has been educated about the laws of not driving. She does state that she understands. The patient can return to the ED for any worsening of symptoms. This is GEMA Lira doing a discharge summary for Dr. Merchant. DISCHARGE TIME: 30 minutes. Dictated by GEMA Lira for Yony Merchant MD
== END 2017-02-01 14:30 | disposition home or self-care (01) ==
LOC: ED 16:53 → 3N 22:33 → UNDOADMIN 22:33 → UNDODISIN 02-01 14:30
PROVIDERS: ADMIT Emergency Medicine; ATTEND Emergency Medicine
DX: R56.9 Unspecified convulsions (principal); G43.909 Migraine, unspecified, not intractable, without status migrainosus; E66.01 Morbid (severe) obesity due to excess calories; F43.10 Post-traumatic stress disorder, unspecified; M79.7 Fibromyalgia; M06.9 Rheumatoid arthritis, unspecified; Z68.39 Body mass index [BMI] 39.0-39.9, adult; H53.8 Other visual disturbances; G89.29 Other chronic pain; R42 Dizziness and giddiness; M54.2 Cervicalgia; M25.511 Pain in right shoulder; Z63.79 Other stressful life events affecting family and household; Z79.899 Other long term (current) drug therapy; Z82.49 Family history of ischemic heart disease and other diseases of the circulatory system
CPT/HCPCS: 70450; 71020; 80048; 80053; 81001; 81025; 82550; 82948; 83735; 83880; 84484; 85025; 85610; 85730; 93005; 96374; 96375; 96376; G0480; J1170; J2060; J2550; J7030; 80320; 80324; 80329; 80345; 80346; 80349; 80353; 80358; 80361; 80365; 83992